=== PATIENT | male | born 1935 | race Caucasian/White ===

== ENCOUNTER 2023-08-29 17:21 | Inpatient (IN) | payer OTHER ==
[~2023-08-29] VITALS: Ht 185.4 cm; Wt 60.9 kg
[2023-08-29 17:40] VITALS: PULSE 70; RESP 14; TEMP 98.9; O2SAT 97
[2023-08-29 18:39] LABS: BASOPHILS % (AUTO) 0.3 % (0.0-2.0); EOSINOPHILS # (AUTO) 0.1 K/uL (0-0.4); EOSINOPHILS % (AUTO) 2.1 % (0.0-4.0); HEMATOCRIT 32.5 % (36-52); LYMPHOCYTES % (AUTO) 43.7 % (20.5-51.1); MEAN CORPUSCULAR HEMOGLOBIN 29 pg (27-31); MEAN CORPUSCULAR HGB CONC 34 g/dL (33-37); MEAN CORPUSCULAR VOLUME 85.2 fL (80-94); MONOCYTES # (AUTO) 0.4 K/uL (0.8-1.0); MONOCYTES % (AUTO) 8.9 % (1.7-9.3); NEUTROPHILS # (AUTO) 2.1 K/uL (1.8-7.7); PLATELET COUNT (AUTO) 220 K/uL (140-450); RED BLOOD CELL COUNT(AUTO) 3.81 MIL/uL (4.20-6.10); RED CELL DISTRIBUTION WIDTH 14.7 % (11.6-13.7); WHITE BLOOD COUNT (AUTO) 4.6 K/uL (4.8-10.8)
[2023-08-29 18:51] LABS: APPEARANCE,URINE CLEAR (CLEAR); BILIRUBIN,URINE NEGATIVE (NEGATIVE); BLOOD, URINE NEGATIVE (NEGATIVE); COLOR,URINE YELLOW (YELLOW); LEUKOCYTE ESTERASE ,URINE NEGATIVE (NEGATIVE); NITRITE, URINE NEGATIVE (NEGATIVE); PH,URINE 6.5 (5.0-9.0); PROTEIN,URINE NEGATIVE (NEGATIVE); UGLUCOSE NEGATIVE (NEGATIVE); UROBILINOGEN,URINE 0.2 EU/dL (0.2 - 1)
[2023-08-29 19:04] LABS: ALANINE AMINOTRANSFERASE 21 U/L (12-78); ALBUMIN 3.4 g/dL (3.4-5.0); ANION GAP 12.6 (8-16); ASPARTATE AMINOTRANSFERASE 18 U/L (15-37); CALCIUM 10.2 mg/dL (8.5-10.1); CARBON DIOXIDE 26.6 mmol/L (21-32); CHLORIDE 100 mmol/L (98-107); CREATININE 1.3 mg/dL (0.6-1.3); GLUCOSE 89 mg/dL (74-106); POTASSIUM 4.2 mmol/L (3.5-5.1); SODIUM SERUM 135 mmol/L (136-145); TOTAL PROTEIN, SERUM 7.7 g/dL (6.4-8.2); UREA NITROGEN, BLOOD 33 mg/dL (7-18)
[2023-08-29 19:17] LABS: LACTIC ACID 0.6 mmol/L (0.4-2.0)
[2023-08-29 19:26] LABS: ALKALINE PHOSPHATASE 111 U/L (50-136); TOTAL BILIRUBIN 0.4 mg/dL (0.0-1.0)
[2023-08-29 19:36] VITALS: O2SAT 97
[2023-08-29] MEDS: NACL 0.9% 1,000 ML IV ONE (20:00)
[2023-08-29] MEDS ORDERED: cefTRIAXone 1,000 MG VIAL ONE (20:36)
[2023-08-29] MEDS ORDERED: AZITHROMYCIN 500 MG INJ VIAL IV ONE (20:45)
[2023-08-29] MEDS: AZITHROMYCIN 500 MG in DEXTROSE 5% 250 ML IV ONE (21:00)
[2023-08-29] MEDS ORDERED: ONDANSETRON 4 MG/2 ML VIAL IVP PRN (21:10)
[2023-08-29 21:41] VITALS: O2SAT 97
[2023-08-29 22:16] VITALS: PULSE 72; RESP 18; O2SAT 95
[2023-08-29] MEDS ORDERED: ALBUTEROL SULFATE/IPRATROPIU 3 ML SOL IH PRN (22:30)
[2023-08-29] MEDS ORDERED: MELA5SGL PO (22:37)
[2023-08-29] MEDS ORDERED: CHOL5000 PO (22:37)
[2023-08-29] MEDS ORDERED: ATOR40TA PO (22:37)
[2023-08-29] MEDS ORDERED: MIRT-120 PO (22:37)
[2023-08-29] MEDS ORDERED: ASPI-1822 PO (22:37)
[2023-08-29] MEDS ORDERED: QUET25TA PO (22:37)
[2023-08-29] MEDS ORDERED: FLUT1DSK2 IH (22:37)
[2023-08-29] MEDS ORDERED: SPIMDI INH (22:37)
[2023-08-29] MEDS ORDERED: ESOM40EC PO (22:37)
[2023-08-29] MEDS ORDERED: PRO5 PO (22:37)
[2023-08-29] MEDS ORDERED: ALBU0.0912 INH (22:37)
[2023-08-29] MEDS: AZITHROMYCIN 500 MG in DEXTROSE 5% 250 ML IV SCH (23:10)
[2023-08-30] VITALS (10 sets, daily range): BP systolic 103–158; BP diastolic 59–82; PULSE 67–101; RESP 18–20; TEMP 96.8–98.3; O2SAT 92–95
[2023-08-30] MEDS: NACL 0.9% 1,000 ML IV SCH (01:25)
[2023-08-30 07:49] LABS: BASOPHILS % (AUTO) 0.5 % (0.0-2.0); EOSINOPHILS # (AUTO) 0.1 K/uL (0-0.4); EOSINOPHILS % (AUTO) 2.3 % (0.0-4.0); HEMOGLOBIN 10.6 g/dL (12.0-18.0); LYMPHOCYTES # (AUTO) 1.7 K/uL (2.0-11.5); LYMPHOCYTES % (AUTO) 38.5 % (20.5-51.1); MEAN CORPUSCULAR HEMOGLOBIN 29 pg (27-31); MEAN CORPUSCULAR HGB CONC 33 g/dL (33-37); MONOCYTES # (AUTO) 0.4 K/uL (0.8-1.0); MONOCYTES % (AUTO) 8.3 % (1.7-9.3); NEUTROPHILS # (AUTO) 2.2 K/uL (1.8-7.7); NEUTROPHILS % (AUTO) 50.4 % (42.2-75.2); PLATELET COUNT (AUTO) 198 K/uL (140-450); RED BLOOD CELL COUNT(AUTO) 3.73 MIL/uL (4.20-6.10); RED CELL DISTRIBUTION WIDTH 14.1 % (11.6-13.7); WHITE BLOOD COUNT (AUTO) 4.4 K/uL (4.8-10.8)
[2023-08-30 08:00] LABS: ANION GAP 9.2 (8-16); CALCIUM 10.1 mg/dL (8.5-10.1); CARBON DIOXIDE 27.9 mmol/L (21-32); CHLORIDE 105 mmol/L (98-107); CREATININE 1.2 mg/dL (0.6-1.3); GLUCOSE 90 mg/dL (74-106); POTASSIUM 4.1 mmol/L (3.5-5.1); SODIUM SERUM 138 mmol/L (136-145); UREA NITROGEN, BLOOD 25 mg/dL (7-18)
[2023-08-30] MEDS: MAG SULF 2000 MG/WATER PREMIX 50 ML IV SCH (11:17)
[2023-08-31] VITALS (7 sets, daily range): BP systolic 115–137; BP diastolic 57–71; PULSE 70–115; RESP 18–22; TEMP 97.3–98.3; O2SAT 92–96
[2023-08-31] MEDS: MORPHINE SULFATE 2 MG/ML SYR IVP PRN (10:12)
[2023-08-31] MEDS: ACETAMINOPHEN 325 MG TAB PO PRN (16:12)
[2023-09-01] VITALS (10 sets, daily range): BP systolic 91–134; BP diastolic 47–76; PULSE 64–100; RESP 18–22; TEMP 97.3–98.3; O2SAT 90–98
[2023-09-01] MEDS: ASPIRIN 81 MG TAB.CHEW PO SCH (09:00)
[2023-09-01] MEDS: MUPIROCIN CA NASAL 2% 1GM TUBE NS SCH (12:06)
[2023-09-01] MEDS: CHLORHEXADINE GLUC 2% CLOTH TP SCH (12:06)
[2023-09-01] MEDS: ATORVASTATIN 20 MG TAB PO SCH (21:12)
[2023-09-01] MEDS: QUEtiapine FUMARATE 25 MG TAB PO SCH (21:12)
[2023-09-01] MEDS: MIRTAZAPINE 15 MG TAB PO SCH (21:12)
[2023-09-02 02:10] VITALS: O2SAT 95
[2023-09-02 04:00] VITALS: BP 118/73; PULSE 86; RESP 18; TEMP 97.6; O2SAT 94
[2023-09-02 04:27] VITALS: O2SAT 93
[2023-09-02 08:00] VITALS: BP 102/69; PULSE 74; PULSE 80; RESP 18; TEMP 96.3; O2SAT 92; O2SAT 96
[2023-09-02 08:41] VITALS: O2SAT 93
[2023-09-02] MEDS ORDERED: LEVO750T75 PO (14:37)
[2023-09-02 15:11] VITALS: BP 145/67; PULSE 80; RESP 16; TEMP 97.4
== END 2023-09-02 16:25 | disposition hospice, home (50) | DRG 178 ==
LOC: MED 17:21 → MTU 21:12
PROVIDERS: ADMIT Hospitalist; ATTEND Hospitalist
DX: J15.69 Pneumonia due to other Gram-negative bacteria (principal); J44.0 Chronic obstructive pulmonary disease with (acute) lower respiratory infection; N40.0 Benign prostatic hyperplasia without lower urinary tract symptoms; E11.9 Type 2 diabetes mellitus without complications; F03.90 Unspecified dementia, unspecified severity, without behavioral disturbance, psychotic disturbance, mood disturbance, and anxiety; Z79.899 Other long term (current) drug therapy; Z88.8 Allergy status to other drugs, medicaments and biological substances
CPT/HCPCS: 36415; 70450; 71045; 80048; 80053; 81003; 83605; 83735; 84484; 85025; 87040; 87081; 93005; 96365; 96368; 97116; 97163-GP; 99291; J0456; J0696; J2270; J3475; J7060

== ENCOUNTER 2023-11-10 23:02 | Inpatient (IN) | payer OTHER ==
[~2023-11-10] VITALS: Ht 172.7 cm; Wt 60.3 kg
[~2023-11-10 23:02] MED LIST: ALBU0.0912 INH; ASPI-1822 PO; ATOR40TA PO; CHOL5000 PO; ESOM40EC PO; FLUT1DSK2 IH; LEVO750T75 PO; MELA5SGL PO; MIRT-120 PO; PRO5 PO; QUET25TA PO; SPIMDI INH
[2023-11-10 23:04] VITALS: BP 116/60; PULSE 116; RESP 18; TEMP 98.2; O2SAT 92
[2023-11-10 23:34] VITALS: O2SAT 97
[2023-11-10 23:57] LABS: BASOPHILS % (AUTO) 0.1 % (0.0-2.0); HEMATOCRIT 37.2 % (36-52); HEMOGLOBIN 11.7 g/dL (12.0-18.0); LYMPHOCYTES # (AUTO) 2.9 K/uL (2.0-11.5); LYMPHOCYTES % (AUTO) 7.2 % (20.5-51.1); MEAN CORPUSCULAR HEMOGLOBIN 27 pg (27-31); MEAN CORPUSCULAR HGB CONC 32 g/dL (33-37); MEAN CORPUSCULAR VOLUME 84.6 fL (80-94); MONOCYTES # (AUTO) 1.3 K/uL (0.8-1.0); MONOCYTES % (AUTO) 3.2 % (1.7-9.3); NEUTROPHILS # (AUTO) 35.8 K/uL (1.8-7.7); NEUTROPHILS % (AUTO) 89.5 % (42.2-75.2); PLATELET COUNT (AUTO) 324 K/uL (140-450); RED BLOOD CELL COUNT(AUTO) 4.39 MIL/uL (4.20-6.10); RED CELL DISTRIBUTION WIDTH 14.6 % (11.6-13.7)
[2023-11-11] VITALS (11 sets, daily range): BP systolic 105–132; BP diastolic 43–77; PULSE 91–104; RESP 18–20; TEMP 97.2–98.9; O2SAT 94–97
[2023-11-11 00:09] LABS: ANION GAP 19.5 (8-16); CARBON DIOXIDE 21.8 mmol/L (21-32); CHLORIDE 111 mmol/L (98-107); CREATININE 3.2 mg/dL (0.6-1.3); GLUCOSE 146 mg/dL (74-106); POTASSIUM 4.3 mmol/L (3.5-5.1); SODIUM SERUM 148 mmol/L (136-145)
[2023-11-11 00:13] LABS: UREA NITROGEN, BLOOD 71 mg/dL (7-18)
[2023-11-11 00:30] LABS: LACTIC ACID 1.3 mmol/L (0.4-2.0)
[2023-11-11] MEDS: NACL 0.9% 1,500 ML IV ONE (00:32)
[2023-11-11] MEDS: NACL 0.9% 500 ML IV ONE ×2 (00:33→04:41)
[2023-11-11] MEDS ORDERED: cefTRIAXone 1,000 MG VIAL ONE (00:34)
[2023-11-11] MEDS: CLINDAMYCIN 600 MG/4 ML VIAL IV ONE (01:15)
[2023-11-11] MEDS ORDERED: CLINDAMYCIN 600 MG/4 ML VIAL ONE (02:22)
[2023-11-11] MEDS ORDERED: VANCOMYCIN PER PHARMACY MC PRN ×2 (03:00→12:45)
[2023-11-11] MEDS ORDERED: ACETAMINOPHEN 325 MG TAB PO PRN ×2 (03:00→12:40)
[2023-11-11] MEDS ORDERED: HYDROcodone/APAP 5/325 MG 1 TAB TAB PO PRN (03:00)
[2023-11-11] MEDS ORDERED: PIPERACILLIN/TAZOBACTAM 4.5 GM VIAL IV ONE (03:16)
[2023-11-11] MEDS: PIPERACILLIN/TAZOBACTAM 4.5 GM in DEXTROSE 5% 100 ML IV SCH (03:31)
[2023-11-11] MEDS: ACETAMINOPHEN 650 MG SUPP RC ONE (03:44)
[2023-11-11 03:49] LABS: APPEARANCE,URINE CLEAR (CLEAR); BILIRUBIN,URINE NEGATIVE (NEGATIVE); BLOOD, URINE 1+ (NEGATIVE); COLOR,URINE YELLOW (YELLOW); LEUKOCYTE ESTERASE ,URINE 1+ (NEGATIVE); NITRITE, URINE POSITIVE (NEGATIVE); PROTEIN,URINE 1+ (NEGATIVE); UGLUCOSE NEGATIVE (NEGATIVE); UROBILINOGEN,URINE 0.2 EU/dL (0.2 - 1)
[2023-11-11 04:13] LABS: BACTERIA,URINE >30 (MANY) /HPF (None Seen); MUCUS,URINE 1+ /LPF (None Seen); SQUAMOUS EPITHELIAL CELL,UR 0-3 (FEW) /LPF (0-3 (FEW)); WBC,URINE TOO MANY TO COUNT /HPF (0-5)
[2023-11-11] MEDS ORDERED: VANCOMYCIN 1,000 MG VIAL ONE (04:54)
[2023-11-11] MEDS: VANCOMYCIN 1,000 MG in DEXTROSE 5% 250 ML IV ONE (05:00)
[2023-11-11] MEDS ORDERED: IBUP-2213 PO (05:25)
[2023-11-11] MEDS ORDERED: UMEC62.5 IH (05:25)
[2023-11-11] MEDS ORDERED: MIRT-120 PO (05:25)
[2023-11-11] MEDS ORDERED: SULF-58 PO (05:25)
[2023-11-11] MEDS ORDERED: OMEP20EC11 PO (05:25)
[2023-11-11] MEDS: LACTATED RINGERS 1,000 ML IV SCH (07:00)
[2023-11-11 08:08] LABS: INR 1.2 (0.8-1.2); PARTIAL THROMBOPLASTIN TIME 28.1 secs (22-35.6); PROTHROMBIN TIME 12.5 secs (10.8-13.4)
[2023-11-11 09:43] LABS: BASOPHILS % (AUTO) 0.1 % (0.0-2.0); HEMATOCRIT 32.3 % (36-52); LYMPHOCYTES % (AUTO) 8.6 % (20.5-51.1); MEAN CORPUSCULAR HEMOGLOBIN 27 pg (27-31); MEAN CORPUSCULAR HGB CONC 31 g/dL (33-37); MEAN CORPUSCULAR VOLUME 86.2 fL (80-94); MONOCYTES # (AUTO) 1.1 K/uL (0.8-1.0); NEUTROPHILS # (AUTO) 31.2 K/uL (1.8-7.7); NEUTROPHILS % (AUTO) 88.3 % (42.2-75.2); PLATELET COUNT (AUTO) 281 K/uL (140-450); RED BLOOD CELL COUNT(AUTO) 3.75 MIL/uL (4.20-6.10); RED CELL DISTRIBUTION WIDTH 14.8 % (11.6-13.7)
[2023-11-11 09:56] LABS: WHITE BLOOD COUNT (AUTO) 35.3 K/uL (4.8-10.8)
[2023-11-11] MEDS ORDERED: CHOLECALCIFEROL PO SCH (12:35)
[2023-11-11] MEDS ORDERED: ONDANSETRON 4 MG/2 ML VIAL IVP PRN (12:40)
[2023-11-11] MEDS ORDERED: POTASSIUM CHLORIDE 10 MEQ TABER PO PRN (12:40)
[2023-11-11] MEDS ORDERED: HYDROcodone/APAP 7.5/325 MG 1 TAB PO PRN (12:40)
[2023-11-11] MEDS: NACL 0.45% 1,000 ML IV SCH (13:54)
[2023-11-11 14:24] LABS: INR 1.18 (0.8-1.2); PARTIAL THROMBOPLASTIN TIME 26.5 secs (22-35.6); PROTHROMBIN TIME 12.3 secs (10.8-13.4)
[2023-11-11 14:30] LABS: LACTIC ACID 1.5 mmol/L (0.4-2.0)
[2023-11-11 14:36] LABS: AMYLASE 338 U/L (25-115); CHOL/HDL RATIO 3.1 (1-4.5); CHOLESTEROL 108 mg/dL (<200); FREE T4 (FREE THYROXINE) 1.28 ng/dL (0.76-1.46); HDL CHOLESTEROL 35 mg/dL (40-60); LDL (CALC) 60 mg/dL (60-100); LIPASE 17 U/L (16-77); MAGNESIUM 1.3 mg/dL (1.8-2.4); PHOSPHORUS 3.4 mg/dL (2.5-4.9); THYROID STIMULATING HORMONE 1.28 uIU/mL (0.34-3.74); TRIGLYCERIDES 69 mg/dL (30-150)
[2023-11-11 14:48] LABS: ANION GAP 16.9 (8-16); CARBON DIOXIDE 21.9 mmol/L (21-32); CHLORIDE 114 mmol/L (98-107); CREATININE 2.3 mg/dL (0.6-1.3); GLUCOSE 103 mg/dL (74-106); POTASSIUM 3.8 mmol/L (3.5-5.1); SODIUM SERUM 149 mmol/L (136-145); UREA NITROGEN, BLOOD 55 mg/dL (7-18)
[2023-11-11] MEDS ORDERED: NON-FORMULARY ITEM (Melatonin 1 CAP) PO SCH (17:00)
[2023-11-11] MEDS: MAG SULF 2000 MG/WATER PREMIX 50 ML IV PRN (19:14)
[2023-11-11 19:19] LABS: AMPHETAMINE, URINE NEGATIVE ng/ml (NEG <=1000); BARBITURATE, URINE NEGATIVE ng/ml (NEG <=200); BENZODIAZEPINE, URINE NEGATIVE ng/mL (NEG <=200); CANNABINOID, URINE NEGATIVE ng/mL (NEG <=50); COCAINE, URINE NEGATIVE ng/mL (NEG <=300); OPIATE, URINE NEGATIVE ng/mL (NEG <=2000); PHENCYCLIDINE SCREEN,URINE NEGATIVE ng/mL (NEG <=25)
[2023-11-11] MEDS: QUEtiapine FUMARATE 25 MG TAB PO SCH (20:04)
[2023-11-11] MEDS: DOCUSATE SODIUM 100 MG GELCAP PO SCH (20:04)
[2023-11-11] MEDS: ATORVASTATIN 20 MG TAB PO SCH (20:04)
[2023-11-12] VITALS (11 sets, daily range): BP systolic 116–125; BP diastolic 57–80; PULSE 86–105; RESP 16–20; TEMP 96.9–98.9; O2SAT 92–98
[2023-11-12 05:36] LABS: BASOPHILS % (AUTO) 0.1 % (0.0-2.0); HEMATOCRIT 34.4 % (36-52); HEMOGLOBIN 10.8 g/dL (12.0-18.0); LYMPHOCYTES # (AUTO) 2.7 K/uL (2.0-11.5); LYMPHOCYTES % (AUTO) 10.9 % (20.5-51.1); MEAN CORPUSCULAR HEMOGLOBIN 27 pg (27-31); MEAN CORPUSCULAR HGB CONC 31 g/dL (33-37); MEAN CORPUSCULAR VOLUME 85.6 fL (80-94); MONOCYTES # (AUTO) 0.7 K/uL (0.8-1.0); MONOCYTES % (AUTO) 2.9 % (1.7-9.3); NEUTROPHILS # (AUTO) 21.3 K/uL (1.8-7.7); NEUTROPHILS % (AUTO) 86.1 % (42.2-75.2); PLATELET COUNT (AUTO) 265 K/uL (140-450); RED BLOOD CELL COUNT(AUTO) 4.02 MIL/uL (4.20-6.10); RED CELL DISTRIBUTION WIDTH 14.5 % (11.6-13.7); WHITE BLOOD COUNT (AUTO) 24.8 K/uL (4.8-10.8)
[2023-11-12 06:13] LABS: ALANINE AMINOTRANSFERASE 14 U/L (12-78); ALBUMIN 2.2 g/dL (3.4-5.0); ALKALINE PHOSPHATASE 111 U/L (50-136); ANION GAP 18.3 (8-16); ASPARTATE AMINOTRANSFERASE 21 U/L (15-37); CALCIUM 10.7 mg/dL (8.5-10.1); CARBON DIOXIDE 23.1 mmol/L (21-32); CHLORIDE 116 mmol/L (98-107); CREATININE 2.1 mg/dL (0.6-1.3); GLUCOSE 86 mg/dL (74-106); PHOSPHORUS 3.5 mg/dL (2.5-4.9); POTASSIUM 3.4 mmol/L (3.5-5.1); SODIUM SERUM 154 mmol/L (136-145); TOTAL BILIRUBIN 0.4 mg/dL (0.0-1.0); TOTAL PROTEIN, SERUM 7.5 g/dL (6.4-8.2); UREA NITROGEN, BLOOD 48 mg/dL (7-18)
[2023-11-12] MEDS: VANCOMYCIN HCL 750 MG in DEXTROSE 5% 250 ML IV SCH (08:39)
[2023-11-12] MEDS: PANTOPRAZOLE 40 MG TABEC PO SCH (09:00)
[2023-11-12] MEDS: MIRTAZAPINE 15 MG TAB PO SCH (09:00)
[2023-11-12] MEDS ORDERED: NON-FORMULARY ITEM (Esomeprazole Magnesium* (Nexium*) 1 CAP) PO SCH (09:00)
[2023-11-12] MEDS: ASPIRIN 81 MG TAB.CHEW PO SCH (09:00)
[2023-11-13] VITALS (9 sets, daily range): BP systolic 110–129; BP diastolic 55–62; PULSE 83–107; RESP 16–19; TEMP 97.1–98.9; O2SAT 88–95
[2023-11-13 06:11] LABS: ANION GAP 18.8 (8-16); CALCIUM 10.3 mg/dL (8.5-10.1); CARBON DIOXIDE 20.3 mmol/L (21-32); CHLORIDE 116 mmol/L (98-107); CREATININE 1.6 mg/dL (0.6-1.3); GLUCOSE 82 mg/dL (74-106); POTASSIUM 3.1 mmol/L (3.5-5.1); SODIUM SERUM 152 mmol/L (136-145); UREA NITROGEN, BLOOD 38 mg/dL (7-18)
[2023-11-13 06:21] LABS: MAGNESIUM 1.6 mg/dL (1.8-2.4); PHOSPHORUS 2.2 mg/dL (2.5-4.9)
[2023-11-13] MEDS: MORPHINE SULFATE 2 MG/ML SYR IVP PRN (09:48)
[2023-11-13] MEDS: VANCOMYCIN 1,000 MG in DEXTROSE 5% 250 ML IV SCH (10:25)
[2023-11-13] MEDS: POTASSIUM CHLORIDE 40 MEQ, LIDOCAINE 1% 25 MG in NACL 0.9% 250 ML IV ONE (10:25)
[2023-11-13] MEDS ORDERED: MAG SULF 2000 MG/WATER PREMIX 50 ML IV ONE (14:40)
[2023-11-13] MEDS ORDERED: TPN PER PHARMACY MC PRN (14:45)
[2023-11-13] MEDS ORDERED: PPN PER PHARMACY MC PRN (14:55)
[2023-11-13] MEDS: POTASSIUM PHOSPHATE 15 MM in NACL 0.9% 250 ML IV ONE (16:15)
[2023-11-13] MEDS: MELATONIN 3 MG TAB PO SCH (21:00)
[2023-11-14] VITALS (11 sets, daily range): BP systolic 107–144; BP diastolic 60–68; PULSE 82–104; RESP 18–22; TEMP 97.5–99.6; O2SAT 90–98
[2023-11-14 06:36] LABS: ANION GAP 20.1 (8-16); CALCIUM 10.1 mg/dL (8.5-10.1); CHLORIDE 114 mmol/L (98-107); CREATININE 1.5 mg/dL (0.6-1.3); GLUCOSE 88 mg/dL (74-106); POTASSIUM 4.1 mmol/L (3.5-5.1); SODIUM SERUM 149 mmol/L (136-145); UREA NITROGEN, BLOOD 30 mg/dL (7-18)
[2023-11-14 06:58] LABS: MAGNESIUM 1.8 mg/dL (1.8-2.4); PHOSPHORUS 3.4 mg/dL (2.5-4.9)
[2023-11-14] MEDS: VANCOMYCIN HCL 750 MG in DEXTROSE 5% 250 ML IV SCH (10:23)
[2023-11-14] MEDS: FUROSEMIDE 40 MG/4 ML VIAL IVP SCH (12:51)
[2023-11-14] MEDS: MEROPENEM 500 MG in NACL 0.9% 50 ML IV SCH (12:52)
[2023-11-14 13:16] LABS: BASOPHILS % (AUTO) 0.1 % (0.0-2.0); EOSINOPHILS # (AUTO) 0.1 K/uL (0-0.4); EOSINOPHILS % (AUTO) 0.6 % (0.0-4.0); HEMATOCRIT 31.1 % (36-52); HEMOGLOBIN 9.7 g/dL (12.0-18.0); LYMPHOCYTES # (AUTO) 2.7 K/uL (2.0-11.5); LYMPHOCYTES % (AUTO) 18.6 % (20.5-51.1); MEAN CORPUSCULAR HEMOGLOBIN 27 pg (27-31); MEAN CORPUSCULAR HGB CONC 31 g/dL (33-37); MEAN CORPUSCULAR VOLUME 85.9 fL (80-94); MONOCYTES # (AUTO) 0.6 K/uL (0.8-1.0); MONOCYTES % (AUTO) 4.3 % (1.7-9.3); NEUTROPHILS % (AUTO) 76.4 % (42.2-75.2); PLATELET COUNT (AUTO) 272 K/uL (140-450); RED BLOOD CELL COUNT(AUTO) 3.62 MIL/uL (4.20-6.10); RED CELL DISTRIBUTION WIDTH 14.9 % (11.6-13.7); WHITE BLOOD COUNT (AUTO) 14.4 K/uL (4.8-10.8)
[2023-11-14] MEDS: CHLORHEXADINE GLUC 2% CLOTH TP SCH (18:09)
[2023-11-14] MEDS: MUPIROCIN CA NASAL 2% 1GM TUBE NS SCH (18:09)
[2023-11-14] MEDS: BLOOD GLUCOSE MONITORING 1 DEV DEV MC SCH (18:09)
[2023-11-14] MEDS: MULTIVITAMIN-12 10 ML in DEXTROSE 50% 665 ML, AMINO ACIDS 8.5% 665 ML, FAT EMULSION 20%... IV SCH (21:57)
[2023-11-15] VITALS (12 sets, daily range): BP systolic 112–142; BP diastolic 56–68; PULSE 82–103; RESP 19–22; TEMP 97.4–100.9; O2SAT 90–99
[2023-11-15 05:25] LABS: ANION GAP 12.1 (8-16); CALCIUM 9.5 mg/dL (8.5-10.1); CARBON DIOXIDE 25.7 mmol/L (21-32); CHLORIDE 113 mmol/L (98-107); CREATININE 1.6 mg/dL (0.6-1.3); GLUCOSE 151 mg/dL (74-106); POTASSIUM 3.8 mmol/L (3.5-5.1); SODIUM SERUM 147 mmol/L (136-145); UREA NITROGEN, BLOOD 30 mg/dL (7-18)
[2023-11-15 06:06] LABS: MAGNESIUM 1.5 mg/dL (1.8-2.4); PHOSPHORUS 2.1 mg/dL (2.5-4.9)
[2023-11-15] MEDS ORDERED: POTASSIUM PHOSPHATE 15 MM in NACL 0.9% 250 ML IV ONE (11:15)
[2023-11-15] MEDS: FUROSEMIDE 20 MG/2 ML VIAL IVP SCH (12:37)
[2023-11-15] MEDS: POTASSIUM PHOSPHATE 15 MM in NACL 0.9% 250 ML IV SCH (12:39)
[2023-11-15] MEDS: INSULIN LISPRO SLIDING SCALE 100 UNITS/ML VIAL SUBQ PRN (12:40)
[2023-11-15 12:48] LABS: BASOPHILS % (AUTO) 0.2 % (0.0-2.0); EOSINOPHILS # (AUTO) 0.1 K/uL (0-0.4); EOSINOPHILS % (AUTO) 0.8 % (0.0-4.0); HEMOGLOBIN 10.8 g/dL (12.0-18.0); LYMPHOCYTES # (AUTO) 2.7 K/uL (2.0-11.5); LYMPHOCYTES % (AUTO) 19.6 % (20.5-51.1); MEAN CORPUSCULAR HEMOGLOBIN 27 pg (27-31); MEAN CORPUSCULAR HGB CONC 31 g/dL (33-37); MEAN CORPUSCULAR VOLUME 85.9 fL (80-94); MONOCYTES # (AUTO) 0.8 K/uL (0.8-1.0); MONOCYTES % (AUTO) 5.9 % (1.7-9.3); NEUTROPHILS % (AUTO) 73.5 % (42.2-75.2); PLATELET COUNT (AUTO) 270 K/uL (140-450); RED BLOOD CELL COUNT(AUTO) 4.07 MIL/uL (4.20-6.10); RED CELL DISTRIBUTION WIDTH 14.8 % (11.6-13.7); WHITE BLOOD COUNT (AUTO) 13.6 K/uL (4.8-10.8)
[2023-11-16] VITALS (14 sets, daily range): BP systolic 93–114; BP diastolic 43–60; PULSE 74–102; RESP 19–24; TEMP 97.5–99.9; O2SAT 90–99
[2023-11-16 05:28] LABS: ANION GAP 13.5 (8-16); CALCIUM 9.8 mg/dL (8.5-10.1); CARBON DIOXIDE 23.9 mmol/L (21-32); CHLORIDE 109 mmol/L (98-107); CREATININE 1.2 mg/dL (0.6-1.3); GLUCOSE 152 mg/dL (74-106); POTASSIUM 3.4 mmol/L (3.5-5.1); SODIUM SERUM 143 mmol/L (136-145); UREA NITROGEN, BLOOD 30 mg/dL (7-18)
[2023-11-16 05:47] LABS: MAGNESIUM 2.2 mg/dL (1.8-2.4); PHOSPHORUS 2.4 mg/dL (2.5-4.9)
[2023-11-16 08:56] LABS: BASOPHILS % (AUTO) 0.3 % (0.0-2.0); EOSINOPHILS # (AUTO) 0.1 K/uL (0-0.4); EOSINOPHILS % (AUTO) 1.5 % (0.0-4.0); HEMATOCRIT 31.4 % (36-52); HEMOGLOBIN 10.1 g/dL (12.0-18.0); LYMPHOCYTES # (AUTO) 2.1 K/uL (2.0-11.5); LYMPHOCYTES % (AUTO) 25.5 % (20.5-51.1); MEAN CORPUSCULAR HEMOGLOBIN 27 pg (27-31); MEAN CORPUSCULAR HGB CONC 32 g/dL (33-37); MEAN CORPUSCULAR VOLUME 84.8 fL (80-94); MONOCYTES # (AUTO) 0.5 K/uL (0.8-1.0); MONOCYTES % (AUTO) 6.4 % (1.7-9.3); NEUTROPHILS # (AUTO) 5.5 K/uL (1.8-7.7); NEUTROPHILS % (AUTO) 66.3 % (42.2-75.2); PLATELET COUNT (AUTO) 259 K/uL (140-450); RED CELL DISTRIBUTION WIDTH 14.5 % (11.6-13.7); WHITE BLOOD COUNT (AUTO) 8.4 K/uL (4.8-10.8)
[2023-11-16] MEDS: fentaNYL citrate 0.05 MG/ML VIAL IVP ONE (12:15)
[2023-11-16] MEDS: MIDAZOLAM 2 MG/2 ML VIAL IVP ONE (12:18)
[2023-11-16] MEDS: POTASSIUM CHLORIDE 20% 40 MEQ/15 ML UDC GT SCH (16:34)
[2023-11-16] MEDS: ERYTHROMYCIN ETHYLSUCCINATE SUSP 200 MG/5 ML UDC PO SCH (16:51)
[2023-11-16] MEDS: fentaNYL citrate 0.05 MG/ML VIAL ONE (19:35)
[2023-11-16] MEDS: MIDAZOLAM 5 MG/5 ML VIAL ONE (19:36)
[2023-11-17] VITALS (13 sets, daily range): BP systolic 100–131; BP diastolic 50–63; PULSE 80–105; RESP 19–28; TEMP 96–98.9; O2SAT 83–99
[2023-11-17] MEDS ORDERED: VANCOMYCIN PER PHARMACY MC PRN (10:10)
[2023-11-17] MEDS ORDERED: MUPI2CRE22 NS (11:47)
[2023-11-17] MEDS ORDERED: CHLO118S2 TP (11:47)
[2023-11-17] MEDS ORDERED: FURO20TA8 PO (11:47)
[2023-11-17] MEDS ORDERED: MERO500V16 IV (11:51)
[2023-11-17] MEDS ORDERED: VANC750F IV (11:51)
[2023-11-17 11:53] LABS: BASOPHILS % (AUTO) 0.3 % (0.0-2.0); EOSINOPHILS # (AUTO) 0.1 K/uL (0-0.4); HEMATOCRIT 30.7 % (36-52); HEMOGLOBIN 9.9 g/dL (12.0-18.0); LYMPHOCYTES # (AUTO) 1.7 K/uL (2.0-11.5); LYMPHOCYTES % (AUTO) 22.7 % (20.5-51.1); MEAN CORPUSCULAR HEMOGLOBIN 27 pg (27-31); MEAN CORPUSCULAR HGB CONC 32 g/dL (33-37); MEAN CORPUSCULAR VOLUME 83.8 fL (80-94); MONOCYTES # (AUTO) 0.5 K/uL (0.8-1.0); MONOCYTES % (AUTO) 6.1 % (1.7-9.3); NEUTROPHILS # (AUTO) 5.3 K/uL (1.8-7.7); NEUTROPHILS % (AUTO) 69.9 % (42.2-75.2); PLATELET COUNT (AUTO) 250 K/uL (140-450); RED BLOOD CELL COUNT(AUTO) 3.66 MIL/uL (4.20-6.10); RED CELL DISTRIBUTION WIDTH 14.5 % (11.6-13.7); WHITE BLOOD COUNT (AUTO) 7.6 K/uL (4.8-10.8)
[2023-11-17 12:14] LABS: ALANINE AMINOTRANSFERASE 26 U/L (12-78); ALBUMIN 1.8 g/dL (3.4-5.0); ALKALINE PHOSPHATASE 94 U/L (50-136); ANION GAP 9.8 (8-16); ASPARTATE AMINOTRANSFERASE 36 U/L (15-37); CARBON DIOXIDE 27.5 mmol/L (21-32); CHLORIDE 105 mmol/L (98-107); CREATININE 1.3 mg/dL (0.6-1.3); GLUCOSE 153 mg/dL (74-106); POTASSIUM 4.3 mmol/L (3.5-5.1); SODIUM SERUM 138 mmol/L (136-145); TOTAL BILIRUBIN 0.3 mg/dL (0.0-1.0); TOTAL PROTEIN, SERUM 7.1 g/dL (6.4-8.2); UREA NITROGEN, BLOOD 33 mg/dL (7-18)
[2023-11-17] MEDS ORDERED: ERGOCALCIFEROL 50,000 IU SGL PO SCH (17:20)
[2023-11-17 22:30] LABS: BLOOD GAS BASE EXCESS 4.4 mmol/L (-2.0-2.0); BLOOD GAS HCO3 27.2 mmol/L (22-26); BLOOD GAS PCO2 33.8 mmHg (35-45); BLOOD GAS PH 7.524 (7.35-7.45); BLOOD GAS PO2 80.8 mmHg (75-100)
[2023-11-17 22:31] LABS: BLOOD GAS O2 SAT% 96.5 % (92.0-98.5)
[2023-11-18] VITALS (24 sets, daily range): BP systolic 72–120; BP diastolic 36–96; PULSE 85–117; RESP 16–35; TEMP 97.5–100; O2SAT 83–100
[2023-11-18] MEDS: FUROSEMIDE 40 MG/4 ML VIAL IVP ONE
[2023-11-18] MEDS: FUROSEMIDE 20 MG/2 ML VIAL IVP ONE (00:08)
[2023-11-18] MEDS: ALBUTEROL SULFATE/IPRATROPIU 3 ML SOL IH PRN (07:26)
[2023-11-18] MEDS ORDERED: FUROSEMIDE 20 MG TAB PO SCH (09:00)
[2023-11-18] MEDS: FUROSEMIDE 40 MG/4 ML VIAL IVP SCH ×2 (09:55→17:00)
[2023-11-18 11:21] LABS: BASOPHILS % (AUTO) 0.2 % (0.0-2.0); EOSINOPHILS # (AUTO) 0.1 K/uL (0-0.4); EOSINOPHILS % (AUTO) 0.6 % (0.0-4.0); HEMATOCRIT 30.1 % (36-52); HEMOGLOBIN 9.7 g/dL (12.0-18.0); LYMPHOCYTES # (AUTO) 1.7 K/uL (2.0-11.5); LYMPHOCYTES % (AUTO) 20.5 % (20.5-51.1); MEAN CORPUSCULAR HEMOGLOBIN 27 pg (27-31); MEAN CORPUSCULAR HGB CONC 32 g/dL (33-37); MEAN CORPUSCULAR VOLUME 83.7 fL (80-94); MONOCYTES # (AUTO) 0.5 K/uL (0.8-1.0); MONOCYTES % (AUTO) 5.9 % (1.7-9.3); NEUTROPHILS # (AUTO) 6.1 K/uL (1.8-7.7); NEUTROPHILS % (AUTO) 72.8 % (42.2-75.2); PLATELET COUNT (AUTO) 271 K/uL (140-450); RED CELL DISTRIBUTION WIDTH 14.7 % (11.6-13.7); WHITE BLOOD COUNT (AUTO) 8.4 K/uL (4.8-10.8)
[2023-11-18] MEDS: ETOMIDATE 20 MG/10 ML VIAL IVP ONE ×2 (12:35)
[2023-11-18] MEDS: ROCURONIUM 50 MG/5 ML VIAL IV ONE (12:35)
[2023-11-18] MEDS: ALBUTEROL SULFATE/IPRATROPIU 3 ML SOL IH SCH (13:43)
[2023-11-18] MEDS: fentaNYL citrate 1 MG in NACL 0.9% 80 ML IV PRN (14:37)
[2023-11-18] MEDS: MIDAZOLAM MDV 50 MG in NACL 0.9% 40 ML IV PRN (14:42)
[2023-11-18 14:44] LABS: BLOOD GAS BASE EXCESS 2.5 mmol/L (-2.0-2.0); BLOOD GAS HCO3 26.7 mmol/L (22-26); BLOOD GAS O2 SAT% 97.8 % (92.0-98.5); BLOOD GAS PCO2 39.7 mmHg (35-45); BLOOD GAS PH 7.445 (7.35-7.45); BLOOD GAS PO2 99.2 mmHg (75-100)
[2023-11-18] MEDS: PANTOPRAZOLE 40 MG INJ VIAL IVP SCH (17:59)
[2023-11-18] MEDS: NOREPINEPHRINE 4 MG/4 ML VIAL IV ONE (23:07)
[2023-11-18] MEDS: NOREPINEPHRINE 8 MG in DEXTROSE 5% 250 ML IV PRN (23:20)
[2023-11-19] VITALS (27 sets, daily range): BP systolic 68–165; BP diastolic 37–59; PULSE 73–101; RESP 22–40; TEMP 97.2–98.9; O2SAT 94–100
[2023-11-19] MEDS: DOCUSATE 100 MG/10 ML UDC GT SCH (00:27)
[2023-11-19] MEDS: ACETYLCYSTEINE 20% (200 MG/ML) 200 MG/ML VIAL INH SCH (01:58)
[2023-11-19 05:23] LABS: BASOPHILS # (AUTO) 0.1 K/uL (0.00-0.22); BASOPHILS % (AUTO) 0.5 % (0.0-2.0); EOSINOPHILS # (AUTO) 0.2 K/uL (0-0.4); HEMATOCRIT 29.6 % (36-52); HEMOGLOBIN 9.4 g/dL (12.0-18.0); LYMPHOCYTES # (AUTO) 3.4 K/uL (2.0-11.5); LYMPHOCYTES % (AUTO) 21.9 % (20.5-51.1); MEAN CORPUSCULAR HEMOGLOBIN 27 pg (27-31); MEAN CORPUSCULAR HGB CONC 32 g/dL (33-37); MEAN CORPUSCULAR VOLUME 84.2 fL (80-94); MONOCYTES # (AUTO) 0.8 K/uL (0.8-1.0); MONOCYTES % (AUTO) 5.4 % (1.7-9.3); NEUTROPHILS # (AUTO) 11.1 K/uL (1.8-7.7); NEUTROPHILS % (AUTO) 71.2 % (42.2-75.2); PLATELET COUNT (AUTO) 396 K/uL (140-450); RED BLOOD CELL COUNT(AUTO) 3.51 MIL/uL (4.20-6.10); RED CELL DISTRIBUTION WIDTH 14.7 % (11.6-13.7); WHITE BLOOD COUNT (AUTO) 15.6 K/uL (4.8-10.8)
[2023-11-19 06:09] LABS: ANION GAP 11.4 (8-16); CALCIUM 9.5 mg/dL (8.5-10.1); CARBON DIOXIDE 28.8 mmol/L (21-32); CHLORIDE 100 mmol/L (98-107); CREATININE 1.5 mg/dL (0.6-1.3); GLUCOSE 172 mg/dL (74-106); POTASSIUM 4.2 mmol/L (3.5-5.1); SODIUM SERUM 136 mmol/L (136-145); UREA NITROGEN, BLOOD 35 mg/dL (7-18)
[2023-11-19 06:14] LABS: MAGNESIUM 1.5 mg/dL (1.8-2.4)
[2023-11-19 12:28] LABS: BLOOD GAS HCO3 28.3 mmol/L (22-26); BLOOD GAS PO2 95.3 mmHg (75-100)
[2023-11-19 12:29] LABS: BLOOD GAS O2 SAT% 97.3 % (92.0-98.5); BLOOD GAS PH 7.456 (7.35-7.45)
[2023-11-19] MEDS: NACL 0.9% 1,000 ML IV SCH (13:39)
[2023-11-20] VITALS (34 sets, daily range): BP systolic 90–145; BP diastolic 37–66; PULSE 67–95; RESP 12–33; TEMP 96.5–97.6; O2SAT 90–100
[2023-11-20 04:11] LABS: BASOPHILS # (AUTO) 0.1 K/uL (0.00-0.22); BASOPHILS % (AUTO) 0.6 % (0.0-2.0); EOSINOPHILS # (AUTO) 0.2 K/uL (0-0.4); HEMATOCRIT 28.3 % (36-52); LYMPHOCYTES # (AUTO) 2.9 K/uL (2.0-11.5); LYMPHOCYTES % (AUTO) 15.6 % (20.5-51.1); MEAN CORPUSCULAR HEMOGLOBIN 27 pg (27-31); MEAN CORPUSCULAR HGB CONC 32 g/dL (33-37); MEAN CORPUSCULAR VOLUME 83.8 fL (80-94); MONOCYTES # (AUTO) 1.1 K/uL (0.8-1.0); NEUTROPHILS # (AUTO) 14.4 K/uL (1.8-7.7); NEUTROPHILS % (AUTO) 76.8 % (42.2-75.2); PLATELET COUNT (AUTO) 372 K/uL (140-450); RED BLOOD CELL COUNT(AUTO) 3.38 MIL/uL (4.20-6.10); RED CELL DISTRIBUTION WIDTH 14.7 % (11.6-13.7); WHITE BLOOD COUNT (AUTO) 18.7 K/uL (4.8-10.8)
[2023-11-20 05:05] LABS: ANION GAP 11.2 (8-16); CHLORIDE 99 mmol/L (98-107); GLUCOSE 144 mg/dL (74-106); POTASSIUM 4.2 mmol/L (3.5-5.1); SODIUM SERUM 136 mmol/L (136-145)
[2023-11-20 05:06] LABS: CALCIUM 9.8 mg/dL (8.5-10.1); CREATININE 1.4 mg/dL (0.6-1.3); UREA NITROGEN, BLOOD 32 mg/dL (7-18)
[2023-11-20 08:09] LABS: BLOOD GAS PH 7.427 (7.35-7.45)
[2023-11-20 08:10] LABS: BLOOD GAS BASE EXCESS 6.5 mmol/L (-2.0-2.0); BLOOD GAS HCO3 31.9 mmol/L (22-26); BLOOD GAS O2 SAT% 98.9 % (92.0-98.5); BLOOD GAS PO2 140.1 mmHg (75-100)
[2023-11-20 08:11] LABS: BLOOD GAS PCO2 49.5 mmHg (35-45)
[2023-11-20 10:53] LABS: BLOOD GAS O2 SAT% 90.8 % (92.0-98.5); BLOOD GAS PCO2 42.3 mmHg (35-45); BLOOD GAS PH 7.446 (7.35-7.45); BLOOD GAS PO2 61.7 mmHg (75-100)
[2023-11-20 10:54] LABS: BLOOD GAS HCO3 28.5 mmol/L (22-26)
[2023-11-20] MEDS: PHENYLEPHRINE 100 MG in NACL 0.9% 250 ML IV PRN (14:48)
[2023-11-20] MEDS ORDERED: COMMUNICATION ORDER MC PRN ×2 (16:20→16:30)
[2023-11-20] MEDS ORDERED: fentaNYL citrate 1 MG in NACL 0.9% 80 ML IV PRN (17:05)
[2023-11-20] MEDS: fentaNYL citrate - 50mL vial 2.5 MG in NACL 0.9% 200 ML IV PRN (18:39)
[2023-11-21] VITALS (34 sets, daily range): BP systolic 11–135; BP diastolic 32–86; PULSE 69–104; RESP 12–32; TEMP 97.4–99.6; O2SAT 94–100
[2023-11-21] MEDS: ALBUTEROL SULFATE/IPRATROPIU 3 ML SOL IH ONE (01:40)
[2023-11-21 06:07] LABS: BASOPHILS % (AUTO) 0.3 % (0.0-2.0); EOSINOPHILS # (AUTO) 0.2 K/uL (0-0.4); EOSINOPHILS % (AUTO) 1.4 % (0.0-4.0); HEMATOCRIT 27.9 % (36-52); HEMOGLOBIN 8.9 g/dL (12.0-18.0); LYMPHOCYTES # (AUTO) 2.9 K/uL (2.0-11.5); LYMPHOCYTES % (AUTO) 19.3 % (20.5-51.1); MEAN CORPUSCULAR HEMOGLOBIN 27 pg (27-31); MEAN CORPUSCULAR HGB CONC 32 g/dL (33-37); MEAN CORPUSCULAR VOLUME 83.6 fL (80-94); MONOCYTES # (AUTO) 0.9 K/uL (0.8-1.0); MONOCYTES % (AUTO) 5.7 % (1.7-9.3); NEUTROPHILS # (AUTO) 11.2 K/uL (1.8-7.7); NEUTROPHILS % (AUTO) 73.3 % (42.2-75.2); PLATELET COUNT (AUTO) 324 K/uL (140-450); RED BLOOD CELL COUNT(AUTO) 3.34 MIL/uL (4.20-6.10); RED CELL DISTRIBUTION WIDTH 14.8 % (11.6-13.7); WHITE BLOOD COUNT (AUTO) 15.3 K/uL (4.8-10.8)
[2023-11-21 06:16] LABS: ANION GAP 8.7 (8-16); CALCIUM 9.5 mg/dL (8.5-10.1); CARBON DIOXIDE 32.8 mmol/L (21-32); CHLORIDE 98 mmol/L (98-107); CREATININE 1.3 mg/dL (0.6-1.3); GLUCOSE 97 mg/dL (74-106); POTASSIUM 4.5 mmol/L (3.5-5.1); SODIUM SERUM 135 mmol/L (136-145); UREA NITROGEN, BLOOD 31 mg/dL (7-18)
[2023-11-21 06:26] LABS: MAGNESIUM 1.8 mg/dL (1.8-2.4); PHOSPHORUS 4.3 mg/dL (2.5-4.9)
[2023-11-21] MEDS: VASOPRESSIN 40 UNITS in NACL 0.9% 250 ML IV PRN (16:46)
[2023-11-22] VITALS (33 sets, daily range): BP systolic 85–145; BP diastolic 37–68; PULSE 56–84; RESP 14–28; TEMP 97–98.3; O2SAT 96–100
[2023-11-22 05:09] LABS: BASOPHILS % (AUTO) 0.2 % (0.0-2.0); EOSINOPHILS # (AUTO) 0.1 K/uL (0-0.4); EOSINOPHILS % (AUTO) 0.4 % (0.0-4.0); HEMATOCRIT 26.1 % (36-52); HEMOGLOBIN 8.3 g/dL (12.0-18.0); LYMPHOCYTES # (AUTO) 2.7 K/uL (2.0-11.5); LYMPHOCYTES % (AUTO) 13.9 % (20.5-51.1); MEAN CORPUSCULAR HEMOGLOBIN 27 pg (27-31); MEAN CORPUSCULAR HGB CONC 32 g/dL (33-37); MEAN CORPUSCULAR VOLUME 84.5 fL (80-94); MONOCYTES # (AUTO) 1.1 K/uL (0.8-1.0); MONOCYTES % (AUTO) 5.8 % (1.7-9.3); NEUTROPHILS # (AUTO) 15.6 K/uL (1.8-7.7); PLATELET COUNT (AUTO) 348 K/uL (140-450); RED BLOOD CELL COUNT(AUTO) 3.09 MIL/uL (4.20-6.10); RED CELL DISTRIBUTION WIDTH 15.3 % (11.6-13.7); WHITE BLOOD COUNT (AUTO) 19.5 K/uL (4.8-10.8)
[2023-11-22 05:26] LABS: ANION GAP 11.2 (8-16); CALCIUM 9.4 mg/dL (8.5-10.1); CARBON DIOXIDE 30.6 mmol/L (21-32); CHLORIDE 98 mmol/L (98-107); CREATININE 1.5 mg/dL (0.6-1.3); GLUCOSE 106 mg/dL (74-106); POTASSIUM 3.8 mmol/L (3.5-5.1); SODIUM SERUM 136 mmol/L (136-145); UREA NITROGEN, BLOOD 38 mg/dL (7-18)
[2023-11-22 05:31] LABS: MAGNESIUM 1.6 mg/dL (1.8-2.4); PHOSPHORUS 4.5 mg/dL (2.5-4.9)
[2023-11-22 06:05] LABS: NEUTROPHILS % (AUTO) 79.7 % (42.2-75.2)
[2023-11-22] MEDS: VANCOMYCIN HCL 750 MG in DEXTROSE 5% 250 ML IV SCH (10:08)
[2023-11-22] MEDS ORDERED: PROPOFOL 1000 MG/100 ML PREMIX 100 ML IV PRN (11:15)
[2023-11-23] VITALS (34 sets, daily range): BP systolic 96–144; BP diastolic 43–87; PULSE 68–95; RESP 16–30; TEMP 97.2–98.2; O2SAT 95–100
[2023-11-23] MEDS: Z-GUARD PASTE TP PRN (00:39)
[2023-11-23 05:18] LABS: BASOPHILS % (AUTO) 0.3 % (0.0-2.0); EOSINOPHILS % (AUTO) 0.2 % (0.0-4.0); HEMATOCRIT 24.6 % (36-52); LYMPHOCYTES # (AUTO) 1.7 K/uL (2.0-11.5); LYMPHOCYTES % (AUTO) 11.6 % (20.5-51.1); MEAN CORPUSCULAR HEMOGLOBIN 27 pg (27-31); MEAN CORPUSCULAR HGB CONC 32 g/dL (33-37); MEAN CORPUSCULAR VOLUME 83.6 fL (80-94); MONOCYTES # (AUTO) 0.7 K/uL (0.8-1.0); MONOCYTES % (AUTO) 4.8 % (1.7-9.3); NEUTROPHILS # (AUTO) 12.2 K/uL (1.8-7.7); NEUTROPHILS % (AUTO) 83.1 % (42.2-75.2); PLATELET COUNT (AUTO) 328 K/uL (140-450); RED BLOOD CELL COUNT(AUTO) 2.94 MIL/uL (4.20-6.10); RED CELL DISTRIBUTION WIDTH 14.9 % (11.6-13.7); WHITE BLOOD COUNT (AUTO) 14.6 K/uL (4.8-10.8)
[2023-11-23 05:59] LABS: MAGNESIUM 1.7 mg/dL (1.8-2.4); PHOSPHORUS 3.6 mg/dL (2.5-4.9)
[2023-11-23 06:02] LABS: CALCIUM 9.7 mg/dL (8.5-10.1); CARBON DIOXIDE 32.2 mmol/L (21-32); CHLORIDE 95 mmol/L (98-107); CREATININE 1.2 mg/dL (0.6-1.3); GLUCOSE 161 mg/dL (74-106); POTASSIUM 3.2 mmol/L (3.5-5.1); SODIUM SERUM 135 mmol/L (136-145); UREA NITROGEN, BLOOD 33 mg/dL (7-18)
[2023-11-23] MEDS: KCL 20 MEQ IN 100 mL PREMIX 200 ML IV PRN (10:10)
[2023-11-24] VITALS (32 sets, daily range): BP systolic 88–160; BP diastolic 46–61; PULSE 68–110; RESP 18–28; TEMP 97.1–99; O2SAT 69–100
[2023-11-24 05:16] LABS: ANION GAP 10.4 (8-16); CALCIUM 9.7 mg/dL (8.5-10.1); CHLORIDE 95 mmol/L (98-107); CREATININE 1.1 mg/dL (0.6-1.3); GLUCOSE 142 mg/dL (74-106); POTASSIUM 3.4 mmol/L (3.5-5.1); SODIUM SERUM 134 mmol/L (136-145); UREA NITROGEN, BLOOD 29 mg/dL (7-18)
[2023-11-24 08:00] LABS: BASOPHILS # (AUTO) 0.1 K/uL (0.00-0.22); BASOPHILS % (AUTO) 0.4 % (0.0-2.0); EOSINOPHILS % (AUTO) 0.2 % (0.0-4.0); HEMATOCRIT 23.7 % (36-52); HEMOGLOBIN 7.6 g/dL (12.0-18.0); LYMPHOCYTES # (AUTO) 1.8 K/uL (2.0-11.5); LYMPHOCYTES % (AUTO) 13.7 % (20.5-51.1); MEAN CORPUSCULAR HEMOGLOBIN 27 pg (27-31); MEAN CORPUSCULAR HGB CONC 32 g/dL (33-37); MEAN CORPUSCULAR VOLUME 83.1 fL (80-94); MONOCYTES # (AUTO) 0.6 K/uL (0.8-1.0); MONOCYTES % (AUTO) 4.9 % (1.7-9.3); NEUTROPHILS # (AUTO) 10.5 K/uL (1.8-7.7); NEUTROPHILS % (AUTO) 80.8 % (42.2-75.2); PLATELET COUNT (AUTO) 322 K/uL (140-450); RED BLOOD CELL COUNT(AUTO) 2.85 MIL/uL (4.20-6.10); RED CELL DISTRIBUTION WIDTH 14.8 % (11.6-13.7); WHITE BLOOD COUNT (AUTO) 13.1 K/uL (4.8-10.8)
[2023-11-24] MEDS: VANCOMYCIN 1,000 MG in DEXTROSE 5% 250 ML IV SCH (08:50)
[2023-11-24] MEDS: ALBUMIN HUMAN 25% 100 ML IV ONE (11:19)
[2023-11-24] MEDS: ALBUMIN HUMAN 25% 100 ML IV SCH (11:20)
[2023-11-25] VITALS (29 sets, daily range): BP systolic 54–115; BP diastolic 26–58; PULSE 59–115; RESP 16–34; TEMP 97.8–98.4; O2SAT 50–100
[2023-11-25 05:02] LABS: BASOPHILS % (AUTO) 0.4 % (0.0-2.0); EOSINOPHILS # (AUTO) 0.1 K/uL (0-0.4); EOSINOPHILS % (AUTO) 0.6 % (0.0-4.0); HEMATOCRIT 23.3 % (36-52); HEMOGLOBIN 7.7 g/dL (12.0-18.0); LYMPHOCYTES # (AUTO) 2.2 K/uL (2.0-11.5); LYMPHOCYTES % (AUTO) 22.1 % (20.5-51.1); MEAN CORPUSCULAR HEMOGLOBIN 27 pg (27-31); MEAN CORPUSCULAR HGB CONC 33 g/dL (33-37); MEAN CORPUSCULAR VOLUME 82.6 fL (80-94); MONOCYTES # (AUTO) 0.7 K/uL (0.8-1.0); MONOCYTES % (AUTO) 6.6 % (1.7-9.3); NEUTROPHILS % (AUTO) 70.3 % (42.2-75.2); PLATELET COUNT (AUTO) 328 K/uL (140-450); RED BLOOD CELL COUNT(AUTO) 2.83 MIL/uL (4.20-6.10); RED CELL DISTRIBUTION WIDTH 14.9 % (11.6-13.7); WHITE BLOOD COUNT (AUTO) 9.9 K/uL (4.8-10.8)
[2023-11-25 05:12] LABS: ANION GAP 10.6 (8-16); CALCIUM 9.9 mg/dL (8.5-10.1); CARBON DIOXIDE 31.8 mmol/L (21-32); CHLORIDE 97 mmol/L (98-107); CREATININE 1.2 mg/dL (0.6-1.3); GLUCOSE 102 mg/dL (74-106); POTASSIUM 3.4 mmol/L (3.5-5.1); SODIUM SERUM 136 mmol/L (136-145); UREA NITROGEN, BLOOD 33 mg/dL (7-18)
[2023-11-25] MEDS: MORPHINE SULFATE 50 MG in NACL 0.9% 45 ML IV PRN (11:59)
[2023-11-25] MEDS: LORazepam 2 MG/ML VIAL IVP PRN (12:00)
[2023-11-25] MEDS: MORPHINE SULFATE 100 MG in NACL 0.9% 90 ML IV PRN (16:06)
[2023-11-25] MEDS ORDERED: MORPHINE SULFATE 50 MG in NACL 0.9% 45 ML IV PRN (16:35)
[2023-11-26] VITALS: BP 57/27; PULSE 58; PULSE 67; RESP 14; O2SAT 49
[2023-11-26 01:00] VITALS: BP 52/29; PULSE 54; RESP 13; O2SAT 49
[2023-11-26 01:25] VITALS: O2SAT 54
[2023-11-26] MEDS ORDERED: MORPHINE SULFATE 10 MG/ML VIAL ONE (01:59)
[2023-11-26 02:00] VITALS: BP 59/23; PULSE 45; RESP 10; O2SAT 46
[2023-11-26 02:10] VITALS: BP 59/23
[2023-11-26] MEDS: MORPHINE SULFATE 10 MG/ML VIAL ONE (02:10)
== END 2023-11-26 02:12 | DRG 870 ==
LOC: MED 23:02 → MTU 11-11 02:59 → MIC 11-18 11:45
PROC: 0DH63UZ Insertion of Feeding Device into Stomach, Percutaneous Approach (ICD-10-PCS; 2023-11-16)
PROC: 5A1955Z Respiratory Ventilation, Greater than 96 Consecutive Hours (ICD-10-PCS; principal; 2023-11-18)
PROC: 0BJ08ZZ Inspection of Tracheobronchial Tree, Via Natural or Artificial Opening Endoscopic (ICD-10-PCS; 2023-11-18)
PROC: 0BH17EZ Insertion of Endotracheal Airway into Trachea, Via Natural or Artificial Opening (ICD-10-PCS; 2023-11-18)
DX: A41.9 Sepsis, unspecified organism (principal); N17.0 Acute kidney failure with tubular necrosis; G93.41 Metabolic encephalopathy; J18.9 Pneumonia, unspecified organism; J96.01 Acute respiratory failure with hypoxia; E87.0 Hyperosmolality and hypernatremia; J44.0 Chronic obstructive pulmonary disease with (acute) lower respiratory infection; Z16.12 Extended spectrum beta lactamase (ESBL) resistance; N39.0 Urinary tract infection, site not specified; L03.211 Cellulitis of face; K11.20 Sialoadenitis, unspecified; I25.10 Atherosclerotic heart disease of native coronary artery without angina pectoris; E86.0 Dehydration; K44.9 Diaphragmatic hernia without obstruction or gangrene; Y95 Nosocomial condition; D63.8 Anemia in other chronic diseases classified elsewhere; Z66 Do not resuscitate; I46.9 Cardiac arrest, cause unspecified; G47.00 Insomnia, unspecified; G30.9 Alzheimer's disease, unspecified; F32.9 Major depressive disorder, single episode, unspecified; G31.9 Degenerative disease of nervous system, unspecified; I36.1 Nonrheumatic tricuspid (valve) insufficiency; B96.20 Unspecified Escherichia coli [E. coli] as the cause of diseases classified elsewhere; I70.0 Atherosclerosis of aorta; R62.7 Adult failure to thrive; E87.6 Hypokalemia; K31.7 Polyp of stomach and duodenum; F02.80 Dementia in other diseases classified elsewhere, unspecified severity, without behavioral disturbance, psychotic disturbance, mood disturbance, and anxiety; R13.10 Dysphagia, unspecified; N40.0 Benign prostatic hyperplasia without lower urinary tract symptoms; Z88.8 Allergy status to other drugs, medicaments and biological substances; Z79.899 Other long term (current) drug therapy; Z79.82 Long term (current) use of aspirin; Z51.5 Encounter for palliative care; Z68.20 Body mass index [BMI] 20.0-20.9, adult
CPT/HCPCS: 31500; 36415; 36600; 70110; 70450; 70486; 70487; 71045; 80048; 80053; 80202; 80305; 81001; 82140; 82150; 82803; 82948; 83036; 83605; 83690; 83735; 83880; 84100; 84439; 84443; 84484; 85025; 85610; 85730; 87040; 87070; 87081; 87086; 87186; 87205; 92526; 93005; 94002; 94003; 94640; 94664; 96361; 96365; 96375; 97110; 97112; 97163-GP; 97530; 99291; A9153; J0696; J1644; J1815; J1940; J2001; J2060; J2185; J2250; J2270; J2470; J2543; J3010; J3370; J3475; J3480; J3490; J7030; J7060; J7608; P9046; Q0092